=== PATIENT | female | born 2000 | race American Indian/Alaskan Native ===

== ENCOUNTER 2020-07-03 12:13 | Emergency (ER) | payer SELFPAY ==
--- NOTE | 2020-07-03 12:40 | Emergency Department Report ---
ED General Adult HPI - General Chief complaint: Chest Pain Stated complaint: CHEST PAIN; SOB; ABDOMINAL PAIN Time Seen by Provider: 07/03/20 12:27 Source: patient Mode of arrival: Ambulatory Limitations: No Limitations - History of Present Illness Initial comments: Patient is a 19-year-old female presents emergency room with complaints of lower abdominal pain that began a week ago. She states that she also has heavy amount of white vaginal discharge. She states that her urine has been darker for the last 2 days. She denies any nausea, vomiting, diarrhea, fever, itching, burning. She states that she is sexually active and uses protection since she states she is not concerned for STDs. Patient states that she is also been having left-sided chest pain for 2 weeks. She states it feels tight and she states she feels irritation in her throat when she tries to breathe, she denies any SOB or pleuritic CP. She denies any leg swelling. She has a past medical history of ovarian cyst. No medication allergies. Last menstrual cycle Severity scale (0 -10): 7 - Related Data Previous Rx's Medication Instructions Recorded Last Taken Type Doxycycline Hyclate [Doxycycline 100 mg PO BID 7 Days #14 tab 07/03/20 Unknown Rx Hyclate TAB] Naproxen [EC-Naprosyn] 375 mg PO BID PRN #14 tablet. 07/03/20 Unknown Rx metroNIDAZOLE [Flagyl] 500 mg PO BID 7 Days #14 tab 07/03/20 Unknown Rx ED Review of Systems ROS: Stated complaint: CHEST PAIN; SOB; ABDOMINAL PAIN Other details as noted in HPI Comment: All other systems reviewed and negative ED Past Medical Hx - Past Medical History Previous Medical History?: No - Surgical History Past Surgical History?: Yes Additional Surgical History: abdominal surgery x 2, patient not sure what exactly was done - Medications Home Medications: Home Medications Medication Instructions Recorded Confirmed Last Taken Type Doxycycline Hyclate [Doxycycline 100 mg PO BID 7 Days #14 tab 07/03/20 Unknown Rx Hyclate TAB] Naproxen [EC-Naprosyn] 375 mg PO BID PRN #14 tablet. 07/03/20 Unknown Rx metroNIDAZOLE [Flagyl] 500 mg PO BID 7 Days #14 tab 07/03/20 Unknown Rx ED Physical Exam - General Limitations: No Limitations General appearance: alert, in no apparent distress - Head Head exam: Present: atraumatic, normocephalic - Eye Eye exam: Present: normal appearance - ENT ENT exam: Present: mucous membranes moist - Respiratory Respiratory exam: Present: normal lung sounds bilaterally. Absent: respiratory distress, wheezes, rales, rhonchi, stridor, chest wall tenderness, accessory muscle use, decreased breath sounds, prolonged expiratory - Cardiovascular Cardiovascular Exam: Present: normal rhythm, tachycardia, normal heart sounds. Absent: systolic murmur, diastolic murmur, rubs, gallop - GI/Abdominal GI/Abdominal exam: Present: soft, tenderness (suprapubic), normal bowel sounds. Absent: distended, guarding, rebound, rigid - Speculum exam: Present: erythema, vaginal discharge (yellow), cervical discharge (yellow), other (section weaver: lorraine, tech). Absent: vaginal bleeding, foreign body, tissue, laceration Bi-manual exam: Present: cervical motion tendernes. Absent: adnexal tenderness, adnexal mass - Neurological Exam Neurological exam: Present: alert, oriented X3 - Psychiatric Psychiatric exam: Present: normal affect, normal mood - Skin Skin exam: Present: warm, dry, intact ED Course Vital Signs 07/03/20 07/03/20 07/03/20 12:22 14:56 15:06 Temperature 99.5 F 98.2 F Pulse Rate 139 H 68 Respiratory 20 18 18 Rate Blood Pressure 126/81 Blood Pressure 140/80 [Right] O2 Sat by Pulse 99 100 Oximetry ED Medical Decision Making - Lab Data Result diagrams: 07/03/20 13:18 07/03/20 13:18 Vital Signs 07/03/20 07/03/20 07/03/20 12:22 14:56 15:06 Temperature 99.5 F 98.2 F Pulse Rate 139 H 68 Respiratory 20 18 18 Rate Blood Pressure 126/81 Blood Pressure 140/80 [Right] O2 Sat by Pulse 99 100 Oximetry Vital Signs 07/03/20 07/03/20 07/03/20 12:22 14:56 15:06 Temperature 99.5 F 98.2 F Pulse Rate 139 H 68 Respiratory 20 18 18 Rate Blood Pressure 126/81 Blood Pressure 140/80 [Right] O2 Sat by Pulse 99 100 Oximetry Lab Results 07/03/20 07/03/20 07/03/20 Range/Units 13:18 13:18 13:18 WBC 14.1 H (4.5-11.0) K/mm3 RBC 4.13 (3.65-5.03) M/mm3 Hgb 12.5 (10.1-14.3) gm/dl Hct 37.4 (30.3-42.9) % MCV 90 (79-97) fl MCH 30 (28-32) pg MCHC 34 (30-34) % RDW 12.2 L (13.2-15.2) % Plt Count 326 (140-440) K/mm3 Lymph % (Auto) 5.4 L (13.4-35.0) % Sharkey % (Auto) 7.4 H (0.0-7.3) % Eos % (Auto) 0.0 (0.0-4.3) % Baso % (Auto) 0.3 (0.0-1.8) % Lymph # (Auto) 0.8 L (1.2-5.4) K/mm3 Sharkey # (Auto) 1.0 H (0.0-0.8) K/mm3 Eos # (Auto) 0.0 (0.0-0.4) K/mm3 Baso # (Auto) 0.0 (0.0-0.1) K/mm3 Seg Neutrophils % 86.9 H (40.0-70.0) % Seg Neutrophils # 12.3 H (1.8-7.7) K/mm3 Sodium 135 L (137-145) mmol/L Potassium 3.5 L (3.6-5.0) mmol/L Chloride 96.8 L (98-107) mmol/L Carbon Dioxide 27 (22-30) mmol/L Anion Gap 15 mmol/L BUN 7 (7-17) mg/dL Creatinine 0.6 (0.6-1.2) mg/dL Estimated GFR > 60 ml/min BUN/Creatinine Ratio 12 % Glucose 101 H (65-100) mg/dL Calcium 9.1 (8.4-10.2) mg/dL Magnesium 1.90 (1.7-2.3) mg/dL Total Bilirubin 1.00 (0.1-1.2) mg/dL AST 13 (5-40) units/L ALT 8 (7-56) units/L Alkaline Phosphatase 79 (35-129) units/L Total Creatine Kinase 49 (30-135) units/L Troponin T < 0.010 (0.00-0.029) ng/mL Total Protein 7.8 (6.3-8.2) g/dL Albumin 4.1 (3.9-5) g/dL Albumin/Globulin Ratio 1.1 % TSH 1.530 (0.270-4.200) mlU/mL Urine Color (Yellow) Urine Turbidity (Clear) Urine pH (5.0-7.0) Ur Specific Highland (1.003-1.030) Urine Protein (Negative) mg/dL Urine Glucose (UA) (Negative) mg/dL Urine Ketones (Negative) mg/dL Urine Blood (Negative) Urine Nitrite (Negative) Urine Bilirubin (Negative) Urine Urobilinogen (<2.0) mg/dL Ur Leukocyte Esterase (Negative) Urine WBC (Auto) (0.0-6.0) /HPF Urine RBC (Auto) (0.0-6.0) /HPF U Epithel Cells (Auto) (0-13.0) /HPF Urine Mucus /HPF Urine HCG, Qual (Negative) 07/03/20 Range/Units 15:06 WBC (4.5-11.0) K/mm3 RBC (3.65-5.03) M/mm3 Hgb (10.1-14.3) gm/dl Hct (30.3-42.9) % MCV (79-97) fl MCH (28-32) pg MCHC (30-34) % RDW (13.2-15.2) % Plt Count (140-440) K/mm3 Lymph % (Auto) (13.4-35.0) % Sharkey % (Auto) (0.0-7.3) % Eos % (Auto) (0.0-4.3) % Baso % (Auto) (0.0-1.8) % Lymph # (Auto) (1.2-5.4) K/mm3 Sharkey # (Auto) (0.0-0.8) K/mm3 Eos # (Auto) (0.0-0.4) K/mm3 Baso # (Auto) (0.0-0.1) K/mm3 Seg Neutrophils % (40.0-70.0) % Seg Neutrophils # (1.8-7.7) K/mm3 Sodium (137-145) mmol/L Potassium (3.6-5.0) mmol/L Chloride (98-107) mmol/L Carbon Dioxide (22-30) mmol/L Anion Gap mmol/L BUN (7-17) mg/dL Creatinine (0.6-1.2) mg/dL Estimated GFR ml/min BUN/Creatinine Ratio % Glucose (65-100) mg/dL Calcium (8.4-10.2) mg/dL Magnesium (1.7-2.3) mg/dL Total Bilirubin (0.1-1.2) mg/dL AST (5-40) units/L ALT (7-56) units/L Alkaline Phosphatase (35-129) units/L Total Creatine Kinase (30-135) units/L Troponin T (0.00-0.029) ng/mL Total Protein (6.3-8.2) g/dL Albumin (3.9-5) g/dL Albumin/Globulin Ratio % TSH (0.270-4.200) mlU/mL Urine Color Yellow (Yellow) Urine Turbidity Clear (Clear) Urine pH 6.0 (5.0-7.0) Ur Specific [place] 1.025 (1.003-1.030) Urine Protein 30 mg/dl (Negative) mg/dL Urine Glucose (UA) Neg (Negative) mg/dL Urine Ketones 80 (Negative) mg/dL Urine Blood Neg (Negative) Urine Nitrite Neg (Negative) Urine Bilirubin Neg (Negative) Urine Urobilinogen 4.0 (<2.0) mg/dL Ur Leukocyte Esterase Neg (Negative) Urine WBC (Auto) 2.0 (0.0-6.0) /HPF Urine RBC (Auto) 2.0 (0.0-6.0) /HPF U Epithel Cells (Auto) 3.0 (0-13.0) /HPF Urine Mucus 2+ /HPF Urine HCG, Qual Negative (Negative) - EKG Data EKG shows normal: sinus rhythm, axis, intervals, QRS complexes, ST-T waves Rate: tachycardia - Radiology Data Radiology results: report reviewed Ordering Physician: LIZ HONG Date of Service: 07/03/20 Procedure(s): US pelvic complete Accession Number(s): [id number] cc: LIZ HONG ULTRASOUND PELVIS INDICATION / CLINICAL INFORMATION: pelvic pain, hx of cysts. TECHNIQUE: Transabdominal. Duplex Color Doppler used: Yes. COMPARISON: None available FINDINGS: UTERUS: The uterus measures 6.9 x 3 x 3.3 cm. The uterus demonstrates a normal sonographic appearance. The endometrial stripe measures 0.8 cm. RIGHT ADNEXA: Right ovary is enlarged, measuring 8.4 x 5.6 x 6.9 cm. Complex cystic structure in the right ovary measures 3.2 x 2.4 x 2.8 cm. 2 additional simple cysts are also present, measuring up to 3.9 and 2.6 cm. Normal color Doppler flow is present within the ovary. LEFT ADNEXA: No significant ovarian cyst or mass. Normal color Doppler blood flow. Left ovary measures 4.6 x 2.1 x 2.1 cm. FREE FLUID: None. ADDITIONAL FINDINGS: None. IMPRESSION: 1. Enlarged right ovary with at least 3 ovarian cysts, to include 3.2 cm complex right ovarian cystic structure, which most likely represents a hemorrhagic cyst. Recommend follow-up pelvic ultrasound in 6 weeks to assess for resolution. 2. Normal uterus and left ovary. Signer Name: Adam Luque MD Signed: 07/03/2020 1:26 PM Workstation Name: [id number] Transcribed By: JS Dictated By: ADAM LUQUE MD Electronically Authenticated By: ADAM LUQUE MD Signed Date/Time: 07/03/20 1326 DD/ 1320 TD/TT: Ordering Physician: LIZ HONG Date of Service: 07/03/20 Procedure(s): XR chest routine 2V Accession Number(s): [id number] cc: LIZ HONG Fluoro Time In Minutes: CHEST 2 VIEWS INDICATION: CP, SOB. COMPARISON: None FINDINGS: Support devices: None. Heart: Within normal limits. Lungs/pleura: No acute air space or interstitial disease. No pneumothorax. Additional findings: Bilateral nipple appears things are noted. IMPRESSION: No acute findings. Signer Name: Harshad Emmanuel Jr, MD Signed: 07/03/2020 1:03 PM Workstation Name: [id number] Transcribed By: TTR Dictated By: HARSHAD EMMANUEL JR, MD Electronically Authenticated By: HARSHAD EMMANUEL JR, MD Signed Date/Time: 07/03/20 1303 DD/ 1302 TD/TT: - Medical Decision Making Patient is a 19-year-old female presents emergency room with complaints of lower abdominal pain that began a week ago. She states that she also has heavy amount of white vaginal discharge. She states that her urine has been darker for the last 2 days. She denies any nausea, vomiting, diarrhea, fever, itching, burning. She states that she is sexually active and uses protection since she states she is not concerned for STDs. Patient states that she is also been h aving left-sided chest pain for 2 weeks. She states it feels tight and she states she feels irritation in her throat when she tries to breathe, she denies any SOB or pleuritic CP. She denies any leg swelling. She has a past medical history of ovarian cyst. No medication allergies. Last menstrual cycle. Initial vitals with tachycardia which improved upon repeat to normal. On exam patient has suprapubic abdominal tenderness palpation, section weaver during pelvic examination the Liotta, tach there is copious amounts of yellow vaginal and cervical discharge, there is erythema and irritation of the vaginal canal. Labs with elevated white blood cell count at 14,000, otherwise stable. UA shows shanti dence of dehydration with ketones, no signs of UTI. Wet prep is positive for bacterial vaginosis. G/C swab sent, patient prophylactically treated with ceftriaxone and given a prescription for doxycycline. Chest x-ray with no acute process. Pelvic ultrasound 1. Enlarged right ovary with at least 3 ovarian cysts, to include 3.2 cm complex right ovarian cystic structure, which most likely represents a hemorrhagic cyst. Recommend follow-up pelvic ultrasound in 6 weeks to assess for resolution. 2. Normal uterus and left ovary. EKG with sinus tach, otherwise normal. Chest x-ray with no acute process. Patient given 1 L IV fluids, Toradol, ceftriaxone and patient was feeling much better and ready to go home. Patient is tolerating p.o. intake without difficulty. She states that her abdominal pain has improved. Patient's chest pain is atypical, do not suspect ACS, EKG without evidence of ischemia or infarction, troponin is negative, her symptoms have been occurring for 2 weeks. Patient is low risk based on Wells criteria for PE, PE unlikely. Discussed all findings with patient and answered questions. Symptoms likely related to PID. Discussed the importance of follow-up with patient. Advised patient Please take medication as prescribed. Please increase your water intake. 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 Please have any partner tested and treated as well. Avoid sexual intercourse. Please follow-up with [facility]. Please follow-up with a primary care doctor. Please follow-up with the health department or clinic for full STD panel. Return to emergency room immediately for any new or worsening symptoms. Critical care attestation.: If time is entered above; I have spent that time in minutes in the direct care of this critically ill patient, excluding procedure time. ED Disposition Clinical Impression: PID (acute pelvic inflammatory disease), Bacterial vaginosis, Atypical chest pain, Complex ovarian cyst Abdominal pain Qualifiers: Abdominal location: lower abdomen, unspecified Qualified Code(s): R10.30 - Lower abdominal pain, unspecified Disposition: TO HOME OR SELFCARE Is pt being admited?: No Does the pt Need Aspirin: No Condition: Stable Instructions: Bacterial Vaginosis, Nonspecific Chest Pain, Adult, Ovarian Cyst, Pelvic Inflammatory Disease, Chest Pain (ED), Bacterial Vaginosis (ED) Additional Instructions: Please take medication as prescribed. Please increase your water intake. 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 Please have any partner tested and treated as well. Avoid sexual intercourse. Please follow-up with [facility]. Please follow-up with a primary care doctor. Please follow-up with the health department or clinic for full STD panel. Return to emergency room immediately for any new or worsening symptoms. Prescriptions: Doxycycline Hyclate [Doxycycline Hyclate TAB] 100 mg PO BID 7 Days #14 tab Naproxen [EC-Naprosyn] 375 mg PO BID PRN #14 tablet.dr KELLER Reason: pain metroNIDAZOLE [Flagyl] 500 mg PO BID 7 Days #14 tab Referrals: VANE FERNÁNDEZ MD [Primary Care Provider] - 2-3 Days ELVIS SUAZO MD [Staff Physician] - 2-3 Days [facility] [Provider Group] - 2-3 Days [facility] [Outside] - 2-3 Days [facility] [Provider Group] - 2-3 Days [facility] [Provider Group[facility] - 2-3 Days [facility] [Provider Group] - 2-3 Days Forms: STI Treatment and Prevention Time of Disposition: 16:29 Print Language: AMERICAN
--- NOTE | 2020-07-03 13:07 | XRay Report ---
CHEST 2 VIEWS INDICATION: CP, SOB. COMPARISON: None FINDINGS: Support devices: None. Heart: Within normal limits. Lungs/pleura: No acute air space or interstitial disease. No pneumothorax. Additional findings: Bilateral nipple appears things are noted. IMPRESSION: No acute findings. Signer Name: Harshad Emmanuel Jr, MD Signed: 07/03/2020 1:03 PM Workstation Name: [id number]
--- NOTE | 2020-07-03 13:30 | Ultrasound Report ---
ULTRASOUND PELVIS INDICATION / CLINICAL INFORMATION: pelvic pain, hx of cysts. TECHNIQUE: Transabdominal. Duplex Color Doppler used: Yes. COMPARISON: None available FINDINGS: UTERUS: The uterus measures 6.9 x 3 x 3.3 cm. The uterus demonstrates a normal sonographic appearanc e. The endometrial stripe measures 0.8 cm. RIGHT ADNEXA: Right ovary is enlarged, measuring 8.4 x 5.6 x 6.9 cm. Complex cystic structure in the right ovary measures 3.2 x 2.4 x 2.8 cm. 2 additional simple cysts are also present, measuring up to 3.9 and 2.6 cm. Normal color Doppler flow is present within the ovary. LEFT ADNEXA: No significant ovarian cyst or mass. Normal color Doppler blood flow. Left ovary measure s 4.6 x 2.1 x 2.1 cm. FREE FLUID: None. ADDITIONAL FINDINGS: None. IMPRESSION: 1. Enlarged right ovary with at least 3 ovarian cysts, to include 3.2 cm complex right ovarian cystic structure, which most likely represents a hemorrhagic cyst. Recommend follow-up pelvic ultrasound in 6 weeks to assess for resolution. 2. Normal uterus and left ovary. Signer Name: Laci Luque MD Signed: 07/03/2020 1:26 PM Workstation Name: [id number]
[2020-07-03] MEDS ORDERED: SODIUM CHLORIDE 0.9% 1000 ML 1,000 ML IV ONE (13:39)
[2020-07-03] MEDS ORDERED: KETOROLAC 30 MG/1 ML INJ IV ONE (13:39)
[2020-07-03 13:44] LABS: Basophils % (Auto) 0.3 % (0.0-1.8); Hematocrit 37.4 % (30.3-42.9); Hemoglobin 12.5 gm/dl (10.1-14.3); Lymphocytes # (Auto) 0.8 K/mm3 (1.2-5.4); Lymphocytes % (Auto) 5.4 % (13.4-35.0); Mean Corpuscular HGB Conc 34 % (30-34); Mean Corpuscular Volume 90 fl (79-97); Monocytes % (Auto) 7.4 % (0.0-7.3); Platelet Count 326 K/mm3 (140-440); Red Blood Count 4.13 M/mm3 (3.65-5.03); Red Cell Distribution Width 12.2 % (13.2-15.2)
[2020-07-03 14:09] LABS: Alanine Aminotransferase 8 units/L (7-56); Albumin 4.1 g/dL (3.9-5); Blood Urea Nitrogen 7 mg/dL (7-17); Calcium 9.1 mg/dL (8.4-10.2); Hemolysis Index 0
[2020-07-03 14:11] LABS: BUN/Creatinine Ratio 12
[2020-07-03] MEDS ORDERED: cefTRIAXone/NS 1 GM/50 ML 1 GM/50 ML BAG IV ONE (14:41)
[2020-07-03 15:09] VITALS: BP 126/81
[2020-07-03 16:23] LABS: Bilirubin,Urine NEG (Negative); Blood,Urine NEG (Negative); Color,Urine Yellow (Yellow); Mucus,Urine 2+ /HPF
[2020-07-03 16:25] LABS: HCG Qualitative,Urine Negative (Negative)
== END 2020-07-03 17:03 | disposition home or self-care (01) ==
LOC: ED 12:13
DX: N73.0 Acute parametritis and pelvic cellulitis (principal); N76.0 Acute vaginitis; N83.299 Other ovarian cyst, unspecified side; R10.30 Lower abdominal pain, unspecified; R07.89 Other chest pain; Z79.899 Other long term (current) drug therapy; Z98.890 Other specified postprocedural states
CPT/HCPCS: 36415; 71046; 76856; 80053; 81001; 81025; 82550; 83735; 84443; 84484; 85025; 87210; 87591; 93005; 96365; 96366; 96375; 99284; J0696; J1885; J7030